=== PATIENT | female | born 1995 | race Caucasian/White ===

== ENCOUNTER 2020-12-02 13:12 | Observation (INO) | payer BC, OTHER ==
[2020-12-02 13:49] VITALS: BP 132/77; PULSE 81
== END 2020-12-02 14:35 | disposition home or self-care (01) ==
LOC: OB 13:12
PROVIDERS: ADMIT Family Medicine; ATTEND Family Medicine
DX: Z34.03 Encounter for supervision of normal first pregnancy, third trimester (principal); Z3A.38 38 weeks gestation of pregnancy
CPT/HCPCS: 84112; G0378

== ENCOUNTER 2020-12-12 04:47 | Inpatient (IN) | payer BC, OTHER ==
[~2020-12-12 04:47] MED LIST: BRETHINE 1 MG/ML SQ PRN; TYLENOL EXTRA STRENGTH 500 MG PO PRN; Zofran 4 MG/2 ML VIAL IV PRN
[2020-12-12] MEDS: Lactated Ringers 1,000 ML IV SCH ×2 (05:29→13:53)
[2020-12-12] MEDS ORDERED: PITOCIN 30 UNITS/ LR 500 ML 30 UNITS/500 ML IV.SOLN. IV SCH ×2 (05:30→12:00)
[2020-12-12 05:42] LABS: Absolute Neutrophil Ct (ANC) 6.62 (1.4-6.9); BASOPHIL % 0.3 % (0.0-0.4); Basophil (Absolute #) 0.03 (0-0.4); Eosinophil % 1.1 % (0.00-5.0); Eosinophil (Absolute #) 0.13 (0-0.5); Hematocrit 38.8 % (35-47); Hemoglobin 13.1 gm/dl (12.0-16.0); Lymphocyte (Absolute #) 3.81 (1.0-4.6); Lymphocytes % 33.3 % (24.0-44.0); Mean Cell Volume 97.2 fl (78-100); Mean Corpuscular Hemoglobin 32.8 pg (26-32); Mean Corpuscular Hgb Concent. 33.8 g/dl (32-36); Mean Platelet Volume 12.4 fl (7.5-11.0); Monocyte (Absolute #) 0.86 (0.0-1.3); Monocytes % 7.5 % (0.0-12.0); Neutrophil % 57.8 % (36.0-66.0); Platelet Count 174 K/mm3 (150-450); Red Blood Count 3.99 M/mm3 (4.1-5.4); Red Cell Distribution Width 12.6 % (11.5-14.0); White Blood Count 11.5 K/mm3 (4.0-10.5)
[2020-12-12 05:59] LABS: Amphetamine,Urine NEGATIVE (NEGATIVE); Barbiturate,Urine NEGATIVE (NEGATIVE); Benzodiazepine,Urine NEGATIVE (NEGATIVE); Cocaine,Urine NEGATIVE (NEGATIVE); Methadone,Urine NEGATIVE (NEGATIVE); Opiate,Urine NEGATIVE (NEGATIVE); PCP,Urine NEGATIVE (NEGATIVE); THC,Urine NEGATIVE (NEGATIVE)
[2020-12-12] MEDS ORDERED: XYLOCAINE 1% HCL 20 ML MDV IJ PRN (08:00)
[2020-12-12] MEDS ORDERED: Lactated Ringers 1,000 ML IV ONE (23:36)
[2020-12-12] MEDS ORDERED: OB EPIDURAL NAROPIN/SUFENTANIL IN NACL EPIDURAL PRN (23:36)
[2020-12-13 01:36] LABS: Appearance CLEAR (CLEAR); Bilirubin NEGATIVE (NEGATIVE); Blood NEGATIVE Ery/ul (0-5); Epithelial Cells RARE /HPF (FEW); Glucose NEGATIVE (NEGATIVE); Ketones TRACE (NEGATIVE); Leukocyte Esterase NEGATIVE (NEGATIVE); Mucus SLIGHT /HPF (NEGATIVE); Nitrite NEGATIVE (NEGATIVE); Protein,Urine Dip NEGATIVE (Negative); RBC 0-2 /HPF (0-2); Specific Gravity 1.012 (1.005-1.025); Urobilinogen NEGATIVE mg/dL (0-1)
[2020-12-13] MEDS: Lactated Ringers 1,000 ML IV SCH ×2 (04:35→11:41)
[2020-12-13] MEDS ORDERED: XYLOCAINE 2%/Epi 1:200000 20ML VIAL MPF ONE (10:24)
[2020-12-13] MEDS ORDERED: Dermoplast Spray TP PRN (13:11)
[2020-12-13] MEDS ORDERED: NORCO 5/325 MG PO PRN (13:11)
[2020-12-13] MEDS ORDERED: Ambien 10 MG PO PRN (13:11)
[2020-12-13] MEDS ORDERED: Mylicon 80MG PO PRN (13:11)
[2020-12-13] MEDS ORDERED: LANSINOH 40 GM TOP PRN (13:11)
[2020-12-13] MEDS ORDERED: TYLENOL EXTRA STRENGTH 500 MG PO PRN (13:11)
[2020-12-13] MEDS ORDERED: CORTISONE 1% CREAM TP PRN (13:11)
[2020-12-13] MEDS ORDERED: TUCKS TP PRN (13:11)
[2020-12-13] MEDS ORDERED: Dulcolax 10 MG SUPP PR PRN (13:11)
[2020-12-13] MEDS ORDERED: Anucort-HC SUPPOSITORY PR PRN (13:11)
[2020-12-13] MEDS: MOTRIN 400 MG PO PRN (19:50)
[2020-12-13] MEDS: Colace 100 MG PO SCH (22:32)
[2020-12-14 05:15] LABS: Absolute Neutrophil Ct (ANC) 12.29 (1.4-6.9); BASOPHIL % 0.2 % (0.0-0.4); Basophil (Absolute #) 0.04 (0-0.4); Eosinophil % 1.2 % (0.00-5.0); Eosinophil (Absolute #) 0.21 (0-0.5); Hematocrit 34.4 % (35-47); Hemoglobin 11.4 gm/dl (12.0-16.0); Lymphocyte (Absolute #) 4.52 (1.0-4.6); Mean Cell Volume 99.1 fl (78-100); Mean Corpuscular Hemoglobin 32.9 pg (26-32); Mean Corpuscular Hgb Concent. 33.1 g/dl (32-36); Mean Platelet Volume 11.9 fl (7.5-11.0); Monocyte (Absolute #) 1.03 (0.0-1.3); Monocytes % 5.7 % (0.0-12.0); Neutrophil % 67.9 % (36.0-66.0); Platelet Count 145 K/mm3 (150-450); Red Blood Count 3.47 M/mm3 (4.1-5.4); Red Cell Distribution Width 12.8 % (11.5-14.0); White Blood Count 18.1 K/mm3 (4.0-10.5)
[2020-12-14] MEDS: MOTRIN 400 MG PO PRN ×2 (09:03→19:59)
[2020-12-14] MEDS: FERREX 150 PO SCH (16:18)
[2020-12-14] MEDS: Colace 100 MG PO SCH ×2 (16:18→22:08)
--- NOTE | 2020-12-15 06:08 | PCM.DS ---
Discharge Summary Date of Admission: 12/13/20 08:07 Admitting Physician: CAMERON RODRIGUEZ Consults: Consults on Case 12/13/20 13:11 Notify Physician ROUTINE Primary Care Provider: JAZZY,RORY Allergies Allergies No Known Drug Allergies Allergy (Verified 12/12/20 06:13) Hospital Summary - Hospital Course Hospital Course: delivered at 39wks , no complications. , pain controlled with ibuprofen, mild lochia, eating and drinking normally. second degree perineal laceration repair, no complications. - Vitals & Intake/Output Vital Signs: Vital Signs Temperature 98.2 F 12/15/20 03:00 Pulse Rate 78 12/15/20 03:00 Respiratory Rate 18 12/15/20 03:00 Blood Pressure 125/76 12/15/20 03:00 O2 Sat by Pulse Oximetry 97 12/15/20 03:00 Intake & Output: Intake & Output 12/12/20 12/13/20 12/14/20 12/15/20 11:59 11:59 11:59 11:59 Intake Total 5730 1300 1500 Balance 5730 1300 1500 Weight 83.915 kg - Lab Result Diagrams: 12/14/20 04:46 Micro Results-Entire Visit: Microbiology 12/13/20 01:31 Urine Culture - Final Catherized <10K NORMAL SKIN LUIS ARMANDO PROBABLE SKIN CONTAMINANT Discharge Exam General Appearance: no apparent distress, alert Neurologic Exam: alert, oriented x 3 Respiratory Exam: normal breath sounds, lungs clear, No respiratory distress Cardiovascular Exam: regular rate/rhythm, normal heart sounds Gastrointestinal/Abdomen Exam: soft, No tenderness, No mass Extremity Exam: normal inspection, normal range of motion Skin Exam: normal color, warm, dry Final Diagnosis/Problem List - Final Discharge Diagnosis/Problem (1) Normal vaginal delivery Current Visit: Yes Status: Acute Code(s): O80 - ENCOUNTER FOR FULL-TERM UNCOMPLICATED DELIVERY (2) Second degree perineal laceration during delivery Current Visit: Yes Status: Acute Code(s): O70.1 - SECOND DEGREE PERINEAL LACERATION DURING DELIVERY (3) (infant) Current Visit: Yes Status: Acute Code(s): Z78.9 - OTHER SPECIFIED HEALTH STATUS - Discharge Disposition: Home, Self-Care Condition: Stable Prescriptions: Continue Vits W-Ca,Fe,FA(<1Mg) [] 1 tab PO DAILY Follow up with: CAMERON RODRIGUEZ MD [ACTIVE STAFF] - 1 month
[2020-12-15] MEDS: MOTRIN 400 MG PO PRN (08:06)
[2020-12-15 09:51] VITALS: BP 119/70; PULSE 73; O2SAT 98
[2020-12-15] MEDS: FERREX 150 PO SCH (09:55)
[2020-12-15] MEDS: Colace 100 MG PO SCH (09:55)
== END 2020-12-15 14:10 | disposition home or self-care (01) | DRG 807 ==
LOC: OB 04:47 → OBSVTOIN 12-13 08:07
PROVIDERS: ADMIT Family Medicine; ATTEND Family Medicine
PROC: 10E0XZZ Delivery of Products of Conception, External Approach (ICD-10-PCS; principal; 2020-12-13)
PROC: 0KQM0ZZ Repair Perineum Muscle, Open Approach (ICD-10-PCS; 2020-12-13)
DX: O70.1 Second degree perineal laceration during delivery (principal); Z37.0 Single live birth; Z3A.39 39 weeks gestation of pregnancy
CPT/HCPCS: 36415; 80307; 81001; 85025; 86592; 87086; 87340; G0378; J2405; J2590; J2795; A9270-GY

== ENCOUNTER 2022-08-12 20:46 | Emergency (ER) | payer BC, OTHER ==
[2022-08-12] MEDS ORDERED: Sodium Chloride 0.9% 1000 ML 1,000 ML IV STA ×2 (21:21→22:43)
[2022-08-12] MEDS ORDERED: Zofran 4 MG/2 ML VIAL IV ONE (21:21)
[2022-08-12] MEDS ORDERED: Zofran 4 MG/2 ML VIAL ONE (21:27)
[2022-08-12] MEDS ORDERED: Sodium Chloride 0.9% 1000 ML 1,000 ML ONE ×2 (21:28→22:44)
[2022-08-12 21:29] LABS: Absolute Neutrophil Ct (ANC) 13.28 x10^3/uL (1.4-6.9); Basophil (Absolute #) 0.04 x10^3/uL (0-0.4); Eosinophil % 0.5 % (0.00-5.0); Eosinophil (Absolute #) 0.08 x10^3/uL (0-0.5); Hemoglobin 15.1 g/dL (12.0-16.0); Lymphocyte (Absolute #) 0.76 x10^3/uL (1.0-4.6); Lymphocytes % 5.2 % (24.0-44.0); Mean Cell Volume 93.4 fL (78-100); Mean Corpuscular Hemoglobin 32.1 pg (26-32); Mean Corpuscular Hgb Concent. 34.3 g/dL (32-36); Monocyte (Absolute #) 0.51 x10^3/uL (0.0-1.3); Monocytes % 3.5 % (0.0-12.0); Neutrophil % 90.2 % (36.0-66.0); Platelet Count 284 x10^3/uL (150-450); Red Blood Count 4.71 x10^6/uL (4.1-5.4); Red Cell Distribution Width 11.8 % (11.5-14.0); White Blood Count 14.7 x10^3/uL (4.0-10.5)
[2022-08-12 21:37] LABS: ALBUMIN 4.7 g/dL (3.5-5.0); ALKALINE PHOSPHATASE 75 U/L (38-126); ANION GAP 15.3 MEQ/L (5-15); BLOOD UREA NITROGEN 15 mg/dL (7-17); CHLORIDE 107 mmol/L (98-107); Calcium 9.1 mg/dL (8.4-10.2); Carbon Dioxide 19 mmol/L (22-30); Creatinine 1 0.68 mg/dL (0.52-1.04); EST GLOMERULAR FILTRATION RATE > 60.0 ML/MIN; Glucose 135 mg/dL (74-106); LIPASE 92 U/L (23-300); Potassium 3.8 mmol/L (3.5-5.1); SGOT/AST 22 U/L (14-36); SGPT/ALT 13 U/L (0-35); SODIUM 138 mmol/L (137-145); Total Protein 8.3 g/dL (6.3-8.2)
[2022-08-12 22:43] LABS: Appearance CLOUDY (CLEAR); Bilirubin SMALL (NEGATIVE); Dipstick done @ ? MAIN LAB; Glucose 100 mg/dL (NEGATIVE); Ketones MODERATE-40 (NEGATIVE); Nitrite NEGATIVE (NEGATIVE); Protein,Urine Dip 100 (Negative); RBC SMALL Ery/ul (0-5); Specific Gravity >=1.030 (1.005-1.025); Urobilinogen 0.2 mg/dL (0-1)
[2022-08-12 22:44] LABS: Bacteria MODERATE /HPF (NEGATIVE); Crystals Unidentified 25-50 /HPF (NEGATIVE); Epithelial Cells RARE /HPF (FEW); Mucus MANY /HPF (NEGATIVE); WBC 26-50 /HPF (0-5)
[2022-08-12 22:45] LABS: Urine Cultured Indicated? YES
[2022-08-12 23:09] VITALS: BP 106/75
--- NOTE | 2022-08-12 23:56 | ERPHSYRPT ---
- History of Present Illness Time Seen by Provider: 08/12/22 21:13 Historian: patient Exam Limitations: no limitations Patient Subjective Stated Complaint: pt states "I have been throwing up and having diarrhea nonstop since 4 pm. I had taco montemayor around 2 pm and it might be food poisoning." Triage Nursing Assessment: pt ambulatory to bed by self, pt alert and oriented x3, pt c/o diffuse abd pain, n/v/d since 1600, pt rating pain 4/10 and describes the pain as a cramping, pt is afebrile at this time Physician History: 27 years old female presented to the ER with chief complaint of nausea vomiting diarrhea with abdominal cramping started around 4 PM. Patient report dull cramping mild to moderate initially, more with vomiting and diarrhea and better in between. Reports having multiple episodes of nonprojectile, nonbilious vomiting without hematemesis and multiple episodes of loose stool without hematochezia. Feels weak fatigued tired and dehydrated. Currently rates 2/10 intensity cramping and dry heaving. No fever or chills reported. Patient thinks it is secondary to the food she ate from fast food. Timing/Duration: hour(s) (6), intermittent, gradual onset, worse Activities at Onset: rest Quality: cramping Abdominal Pain Onset Location: generalized abdomen Pain Radiation: no radiation Severity of Pain-Max: mild Severity of Pain-Current: mild Modifying Factors: Worsens With: vomiting Associated Symptoms: diarrhea, nausea, vomiting Previous symptoms: no prior history Allergies/Adverse Reactions: No Known Drug Allergies Allergy (Verified 08/12/22 20:55) Hx Tetanus, Diphtheria Vaccination/Date Given: Yes Hx Influenza Vaccination/Date Given: No Hx Pneumococcal Vaccination/Date Given: No Immunizations Up to Date: No Travel Risk - International Travel Have you traveled outside of the country in past 3 weeks: No - Coronavirus Screening Are you exhibiting any of the following symptoms?: No Close contact with a COVID-19 positive Pt in past 14-21 Days: No - Vaccine Status Have you recieved a Covid-19 vaccination: Yes 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: [employer] - Review of Systems Constitutional: Fatigue, Weakness Eyes: No Symptoms Ears, Nose, & Throat: No Symptoms Respiratory: No Symptoms Cardiac: No Symptoms Abdominal/Gastrointestinal: Abdominal Pain, Nausea, Vomiting, Diarrhea Genitourinary Symptoms: No Symptoms Musculoskeletal: No Symptoms Skin: No Symptoms Neurological: No Symptoms Psychological: No Symptoms Endocrine: No Symptoms Hematologic/Lymphatic: No Symptoms - Past Medical History Pertinent Past Medical History: No Neurological History: No Pertinent History ENT History: No Pertinent History Cardiac History: No Pertinent History Respiratory History: No Pertinent History Endocrine Medical History: No Pertinent History Musculoskeletal History: No Pertinent History GI Medical History: No Pertinent History History: No Pertinent History Psycho-Social History: No Pertinent History Female Reproductive Disorders: No Pertinent History - Past Surgical History Past Surgical History: No Neuro Surgical History: No Pertinent History Cardiac: No Pertinent History Respiratory: No Pertinent History Gastrointestinal: No Pertinent History Genitourinary: No Pertinent History Musculoskeletal: No Pertinent History Female Surgical History: No Pertinent History - Social History Smoking Status: Former smoker How long have you smoked: 4 yrs. Exposure to second hand smoke: Yes Drug Use: none Patient Lives Alone: No - Female History Hx Last Menstrual Period: 07/19/2022 Hx Now: No - Nursing Vital Signs Nursing Vital Signs: Initial Vital Signs Temperature 97.6 F 08/12/22 20:57 Pulse Rate 80 08/12/22 20:57 Respiratory Rate 18 08/12/22 20:57 Blood Pressure 124/76 08/12/22 20:57 O2 Sat by Pulse Oximetry 97 08/12/22 20:57 Pain Scale Pain Intensity 4 - Physical Exam General Appearance: no apparent distress, alert Eye Exam: PERRL/EOMI Ears, Nose, Throat Exam: normal ENT inspection Neck Exam: normal inspection, supple, full range of motion Respiratory Exam: normal breath sounds, lungs clear Cardiovascular Exam: regular rate/rhythm, normal heart sounds Gastrointestinal/Abdomen Exam: soft, normal bowel sounds, No tenderness, No distention, No guarding Back Exam: normal inspection, normal range of motion Extremity Exam: normal inspection, normal range of motion Neurologic Exam: alert, oriented x 3, cooperative Skin Exam: normal color SpO2 Interpretation: normal SpO2: 99 O2 Delivery: Room Air Ordered Tests: Active Orders 24 hr Category Date Time Status IV Insertion STAT Care 08/12/22 21:21 Active NPO (ED) STAT Care 08/12/22 21:21 Active CBC W DIFF Stat Lab 08/12/22 21:21 Completed CMP Stat Lab 08/12/22 21:26 Completed CULTURE,URINE Stat Lab 08/12/22 22:42 Received HCG,QUALITATIVE URINE Stat Lab 08/12/22 22:36 Completed LIPASE Stat Lab 08/12/22 21:26 Completed Manual Differential NC Stat Lab 08/12/22 21:21 Completed UA W/RFX CULTURE Stat Lab 08/12/22 22:42 Completed Medication Summary Discontinued Medications Generic Name Dose Route Start Last Admin Trade Name Alfredo PRN Reason Stop Dose Admin Sodium Chloride 1,000 mls @ 999 mls/hr 08/12/22 21:21 08/12/22 23:54 Sodium Chloride 0.9% 1000 Ml IV 08/12/22 22:21 Infused .Q1H1M STA Infusion Sodium Chloride Confirm 08/12/22 21:28 Sodium Chloride 0.9% 1000 Ml Administered 08/12/22 21:29 Dose 1,000 mls @ ud .ROUTE .STK-MED ONE Sodium Chloride 1,000 mls @ 999 mls/hr 08/12/22 22:43 08/12/22 23:54 Sodium Chloride 0.9% 1000 Ml IV 08/12/22 23:43 Infused .Q1H1M STA Infusion Sodium Chloride Confirm 08/12/22 22:44 Sodium Chloride 0.9% 1000 Ml Administered 08/12/22 22:45 Dose 1,000 mls @ ud .ROUTE .STK-MED ONE Ondansetron HCl 4 mg 08/12/22 21:21 08/12/22 21:30 Ondansetron Hcl 4 Mg/2 Ml Vial IV 08/12/22 21:22 4 mg STAT ONE Administration Ondansetron HCl Confirm 08/12/22 21:27 Ondansetron Hcl 4 Mg/2 Ml Vial Administered 08/12/22 21:28 Dose 4 mg .ROUTE .STK-MED ONE Lab/Rad Data: Laboratory Result Diagrams 08/12/22 21:21 08/12/22 21:26 Laboratory Results 08/12/22 08/12/22 08/12/22 Range/Units 22:42 22:36 21:26 WBC (4.0-10.5) x10^3/uL RBC (4.1-5.4) x10^6/uL Hgb (12.0-16.0) g/dL Hct (35-47) % MCV (78-100) fL MCH (26-32) pg MCHC (32-36) g/dL RDW (11.5-14.0) % Plt Count (150-450) x10^3/uL MPV (7.5-11.0) fL Gran % (36.0-66.0) % Immature Gran % (Auto) (0.00-0.4) % Nucleat RBC Rel Count (0.00-0.1) % Eos # (Auto) (0-0.5) x10^3/uL Immature Gran # (Auto) (0.00-0.03) x10^3u/L Absolute Lymphs (auto) (1.0-4.6) x10^3/uL Absolute Monos (auto) (0.0-1.3) x10^3/uL Absolute Nucleated RBC (0.00-0.01) x10^3u/L Lymphocytes % (24.0-44.0) % Monocytes % (0.0-12.0) % Eosinophils % (0.00-5.0) % Basophils % (0.0-0.4) % Absolute Granulocytes (1.4-6.9) x10^3/uL Basophils # (0-0.4) x10^3/uL Sodium 138 (137-145) mmol/L Potassium 3.8 (3.5-5.1) mmol/L Chloride 107 (98-107) mmol/L Carbon Dioxide 19 L (22-30) mmol/L Anion Gap 15.3 H (5-15) MEQ/L BUN 15 (7-17) mg/dL Creatinine 0.68 (0.52-1.04) mg/dL Estimated GFR > 60.0 ML/MIN Glucose 135 H (74-106) mg/dL Calcium 9.1 (8.4-10.2) mg/dL Total Bilirubin 1.50 H (0.2-1.3) mg/dL AST 22 (14-36) U/L ALT 13 (0-35) U/L Alkaline Phosphatase 75 (38-126) U/L Serum Total Protein 8.3 H (6.3-8.2) g/dL Albumin 4.7 (3.5-5.0) g/dL Lipase 92 (23-300) U/L Urinalys Dipstick Clnc MAIN LAB Urine Color DARK YELLOW (YELLOW) Urine Appearance CLOUDY (CLEAR) Urine pH 6.0 (5-6) Ur Specific [place] >=1.030 (1.005-1.025) POC Urine Protein Conf 100 (Negative) Urine Ketones MODERATE-40 (NEGATIVE) Urine Nitrite NEGATIVE (NEGATIVE) Urine Bilirubin SMALL (NEGATIVE) Urine Urobilinogen 0.2 (0-1) mg/dL Urine Leukocytes LARGE (NEGATIVE) Urine WBC (Auto) 26-50 (0-5) /HPF Urine RBC (Auto) 16-25 (0-2) /HPF U Epithel Cells (Auto) RARE (FEW) /HPF Urine Bacteria (Auto) MODERATE (NEGATIVE) /HPF Urine RBC SMALL (0-5) Dylan/ul Unidentified Crystals 25-50 (NEGATIVE) /HPF Urine Mucus (Auto) MANY (NEGATIVE) /HPF Ur Culture Indicated? YES Urine Glucose 100 (NEGATIVE) mg/dL Urine HCG, Qual NEGATIVE (Negative) 08/12/22 Range/Units 21:21 WBC 14.7 H (4.0-10.5) x10^3/uL RBC 4.71 (4.1-5.4) x10^6/uL Hgb 15.1 (12.0-16.0) g/dL Hct 44.0 (35-47) % MCV 93.4 (78-100) fL MCH 32.1 H (26-32) pg MCHC 34.3 (32-36) g/dL RDW 11.8 (11.5-14.0) % Plt Count 284 (150-450) x10^3/uL MPV 10.0 (7.5-11.0) fL Gran % 90.2 H (36.0-66.0) % Immature Gran % (Auto) 0.3 (0.00-0.4) % Nucleat RBC Rel Count 0.0 (0.00-0.1) % Eos # (Auto) 0.08 (0-0.5) x10^3/uL Immature Gran # (Auto) 0.04 H (0.00-0.03) x10^3u/L Absolute Lymphs (auto) 0.76 L (1.0-4.6) x10^3/uL Absolute Monos (auto) 0.51 (0.0-1.3) x10^3/uL Absolute Nucleated RBC 0.00 (0.00-0.01) x10^3u/L Lymphocytes % 5.2 L (24.0-44.0) % Monocytes % 3.5 (0.0-12.0) % Eosinophils % 0.5 (0.00-5.0) % Basophils % 0.3 (0.0-0.4) % Absolute Granulocytes 13.28 H (1.4-6.9) x10^3/uL Basophils # 0.04 (0-0.4) x10^3/uL Sodium (137-145) mmol/L Potassium (3.5-5.1) mmol/L Chloride (98-107) mmol/L Carbon Dioxide (22-30) mmol/L Anion Gap (5-15) MEQ/L BUN (7-17) mg/dL Creatinine (0.52-1.04) mg/dL Estimated GFR ML/MIN Glucose (74-106) mg/dL Calcium (8.4-10.2) mg/dL Total Bilirubin (0.2-1.3) mg/dL AST (14-36) U/L ALT (0-35) U/L Alkaline Phosphatase (38-126) U/L Serum Total Protein (6.3-8.2) g/dL Albumin (3.5-5.0) g/dL Lipase (23-300) U/L Urinalys Dipstick Clnc Urine Color (YELLOW) Urine Appearance (CLEAR) Urine pH (5-6) Ur Specific [place] (1.005-1.025) POC Urine Protein Conf (Negative) Urine Ketones (NEGATIVE) Urine Nitrite (NEGATIVE) Urine Bilirubin (NEGATIVE) Urine Urobilinogen (0-1) mg/dL Urine Leukocytes (NEGATIVE) Urine WBC (Auto) (0-5) /HPF Urine RBC (Auto) (0-2) /HPF U Epithel Cells (Auto) (FEW) /HPF Urine Bacteria (Auto) (NEGATIVE) /HPF Urine RBC (0-5) Dylan/ul Unidentified Crystals (NEGATIVE) /HPF Urine Mucus (Auto) (NEGATIVE) /HPF Ur Culture Indicated? Urine Glucose (NEGATIVE) mg/dL Urine HCG, Qual (Negative) - Progress Progress: improved Progress Note: 08/12/22 23:53 She is given fluids and Zofran, feeling much better on reevaluation. Heart rate also improved. Abdominal exam nonsurgical on repeated evaluation. Work-up showed white count of 14, chemistries profile consistent with dehydration with mildly low bicarb, gap of 15.3 and urinalysis does have ketone and blood sugar in 130s. Patient has no history of diabetes mellitus, do not think this is DKA but more of dehydration related changes. Do not think she needs imaging or any other work-up, recommended taking Zofran/Tylenol and outpatient follow-up. I believe this seems to be viral etiology versus food related, discussed signs symptoms of worsening needing return to ER which she seems understanding. Counseled pt/family regarding: lab results, diagnosis, need for follow-up - Departure Departure Disposition: Home Clinical Impression: Acute gastroenteritis, Dehydration Condition: Stable Critical Care Time: No Referrals: RORY PURCELL MD [Primary Care Provider] - Follow up/PCP as directed (1-2 days for reevaluation) Instructions: Viral Gastroenteritis, Severe Abdominal Pain, Adult (DC) Additional Instructions: Drink plenty of fluids to keep yourself well-hydrated. Follow-up with primary care for reevaluation. Take Tylenol and Zofran as needed. Return to ER for intractable nausea vomiting/diarrhea or if develop abdominal pain fever chills etc. Prescriptions: Ondansetron ODT 4 MG [Zofran Odt 4 mg] 1 ea PO QIDPRN PRN #7 tablet PRN Reason: n/v
[2022-08-13 00:03] VITALS: PULSE 80
[2022-08-13 00:07] VITALS: O2SAT 99
== END 2022-08-13 00:07 | disposition home or self-care (01) ==
LOC: ED 20:46
DX: K52.9 Noninfective gastroenteritis and colitis, unspecified (principal); E86.0 Dehydration; R11.2 Nausea with vomiting, unspecified; R10.84 Generalized abdominal pain
CPT/HCPCS: 36000; 36415; 80053; 81015; 81025; 83690; 85025; 87086; 96360; 96374; 96375; 99284; J2405

== ENCOUNTER 2022-10-01 04:17 | Emergency (ER) | payer OTHER ==
[2022-10-01 04:30] VITALS: BP 138/77; O2SAT 100
--- NOTE | 2022-10-01 04:54 | ERPHSYRPT ---
- History of Present Illness Source: patient Exam Limitations: no limitations Patient Subjective Stated Complaint: pt states that she has had a migraine for several hours. she statesd that she does have a history of migraine headaches. Triage Nursing Assessment: pt arrived in er alone, walked back to room without assistance. able to answer questions appropriatly, rates pain as 8/10 in ride frontal area of head. Physician History: 27 yo Wf w R frontal CUEVAS since 19:00. Pain is 8/10 and described as throbbing. Pt has been getting CUEVAS's x 2yrs but has never been to the ER for CUEVAS's or had brain imaging. She has had N/V but denies fever/focal weakness/trauma/cough/coryza. Nothing makes the pain better or worse, including lights/noises/smells. Pain is not preceded by auras and is not associated w foods/periods. Timing/Duration: other (19:00) Quality: throbbing Head Pain Location: frontal (R frontal) Severity of Pain-Max: severe Severity of Pain-Current: severe Recent Head Trauma: chronic headaches Modifying Factors: Improves With: other (Nothing makes better or worse) Associated Symptoms: denies symptoms Previous symptoms: same symptoms as today Allergies/Adverse Reactions: No Known Drug Allergies Allergy (Verified 08/12/22 20:55) Hx Tetanus, Diphtheria Vaccination/Date Given: Yes Hx Influenza Vaccination/Date Given: No Hx Pneumococcal Vaccination/Date Given: No Travel Risk - International Travel Have you traveled outside of the country in past 3 weeks: No - Coronavirus Screening Are you exhibiting any of the following symptoms?: No Close contact with a COVID-19 positive Pt in past 14-21 Days: No - Vaccine Status Have you recieved a Covid-19 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 - Vaccination Dates Date of 2cond Vaccination (if applicable): unknown - Review of Systems Constitutional: No Symptoms Eyes: No Symptoms Ears, Nose, & Throat: No Symptoms Respiratory: No Symptoms Cardiac: No Symptoms Abdominal/Gastrointestinal: No Symptoms Genitourinary Symptoms: No Symptoms Musculoskeletal: No Symptoms Skin: No Symptoms Neurological: No Symptoms, Headache Psychological: No Symptoms Endocrine: No Symptoms Hematologic/Lymphatic: No Symptoms Immunological/Allergic: No Symptoms - Past Medical History Pertinent Past Medical History: Yes Neurological History: Migraines ENT History: No Pertinent History Cardiac History: No Pertinent History Respiratory History: No Pertinent History Endocrine Medical History: No Pertinent History Musculoskeletal History: No Pertinent History GI Medical History: No Pertinent History History: No Pertinent History Psycho-Social History: No Pertinent History Female Reproductive Disorders: No Pertinent History Other Medical History: migraines - Past Surgical History Past Surgical History: No Neuro Surgical History: No Pertinent History Cardiac: No Pertinent History Respiratory: No Pertinent History Gastrointestinal: No Pertinent History Genitourinary: No Pertinent History Musculoskeletal: No Pertinent History Female Surgical History: No Pertinent History - Social History Smoking Status: Former smoker How long have you smoked: 4 yrs. Exposure to second hand smoke: Yes Drug Use: none Patient Lives Alone: No Significant Family History: no pertinent family hx - Female History Hx Last Menstrual Period: 09/10/22 Hx Now: No - Nursing Vital Signs Nursing Vital Signs: Initial Vital Signs Temperature 97.8 F 10/01/22 04:20 Pulse Rate 81 10/01/22 04:20 Respiratory Rate 18 10/01/22 04:20 Blood Pressure 138/77 10/01/22 04:20 O2 Sat by Pulse Oximetry 100 10/01/22 04:20 Pain Scale Pain Intensity 8 Mild hypertensive - Physical Exam General Appearance: no apparent distress Eye Exam: PERRL/EOMI, eyes nml inspection Ears, Nose, Throat Exam: normal ENT inspection, TMs normal, pharynx normal, moist mucous membranes Neck Exam: normal inspection, non-tender, supple, full range of motion, No meningismus, No mass, No Brudzinski, No Kernig's Respiratory Exam: normal breath sounds, lungs clear, airway intact Cardiovascular Exam: regular rate/rhythm, normal heart sounds, normal peripheral pulses, capillary refill <2 sec, No murmur Gastrointestinal/Abdominal Exam: soft, normal bowel sounds, No tenderness Back Exam: normal inspection, normal range of motion Extremity Exam: normal inspection, normal range of motion, pelvis stable Mental Status Exam: alert, oriented x 3, cooperative health administrator Exam: normal hearing, normal speech, PERRL, No facial asymmetry, No facial droop Coordination/Gait Exam: normal gait, normal cerebellar function, negative Romberg's sign Motor/Sensory Exam: no motor deficit, no sensory deficit, no pronator drift, negative Babinski's sign DTR Exam: bicep (R): 2+, bicep (L): 2+, knee (R): 1+, knee (L): 1+ Skin Exam: normal color, warm, dry, No rash Lymphatic Exam: No adenopathy SpO2 Interpretation: normal SpO2: 100 O2 Delivery: Room Air - CT Exams Head CT Interpretation: Tele-radiologist Report (CT head neg) Ordered Tests: Active Orders 24 hr Category Date Time Status HEAD WITHOUT CONTRAST [CT] Stat Exams 10/01/22 04:48 Taken Medication Summary Discontinued Medications Generic Name Dose Route Start Last Admin Trade Name Alfredo PRN Reason Stop Dose Admin Ketorolac Tromethamine 30 mg 10/01/22 05:35 Ketorolac Tromethamine 30 Mg/Ml Inj IV 10/01/22 05:36 STAT ONE - Progress Progress: improved Progress Note: 10/01/22 05:38 Pain improved to a 6 wo treatment 30mg IV Toradol Counseled pt/family regarding: diagnosis, need for follow-up, rad results - Departure Departure Disposition: Home Clinical Impression: Migraine headache Condition: Stable Critical Care Time: No Referrals: RORY PURCELL MD [Primary Care Provider] - Follow up/PCP as directed Instructions: Headache, Adult (DC) Additional Instructions: Follow up with Dr. Purcell Return to ER for increasing pain/Focal weakness/Temperature greater than 100.5
[2022-10-01] MEDS ORDERED: TORAdol 30 mg Injection IV ONE (05:35)
[2022-10-01 05:36] VITALS: PULSE 71
[2022-10-01] MEDS ORDERED: TORAdol 30 mg Injection ONE (05:37)
--- NOTE | 2022-10-01 08:59 | XRAY ---
Indication: Migraine headache. Multiple contiguous axial images obtained through the head without contrast. Comparison: March 21, 2016 Again normal appearing brain parenchyma, ventricles, and bony calvarium. Visualized paranasal sinuses and mastoid air cells are clear. Impression: Continued normal CT head without contrast exam. Comment: Preliminary interpretation made by [facility]. No critical discrepancy.
== END 2022-10-01 05:51 | disposition home or self-care (01) ==
LOC: ED 04:17
DX: G43.909 Migraine, unspecified, not intractable, without status migrainosus (principal); R11.2 Nausea with vomiting, unspecified
CPT/HCPCS: 70450; 96374; 99283; J1885